=== PATIENT | male | born 1970 | race Caucasian/White ===

== ENCOUNTER 2017-01-01 11:01 | Emergency (ER) | payer BC, OTHER ==
[2017-01-01 11:26] VITALS: BP 156/96; PULSE 78; RESP 18; TEMP 98.8
--- NOTE | 2017-01-01 11:51 | ED ---
General Adult HPI - General Chief complaint: Recheck/Abnormal Lab/Rx Stated complaint: Hyperglycemia Time Seen by Provider: 01/01/17 11:35 Source: patient, family, RN notes reviewed Mode of arrival: ambulatory Limitations: no limitations - History of Present Illness Initial comments: Chief complaint history of present illness this is a 46-year-old male here with his significant other. The patient has a history of diabetes. He's been out of his Glucophage for 3 weeks he does use Lantus. He also needs a refill of his Lipitor and his glucose test strips. Patient has no other complaints - Related Data Home Medications Medication Instructions Recorded Confirmed Atorvastatin [Lipitor] 40 mg PO DAILY 12/01/15 12/01/15 metFORMIN HCL 1,000 mg PO BID-W/MEALS 12/01/15 12/01/15 Previous Rx's Medication Instructions Recorded Cephalexin [Keflex] 500 mg PO Q6HR #28 cap 12/01/15 Atorvastatin [Lipitor] 40 mg PO DAILY #90 tablet 01/01/17 metFORMIN HCL [Glucophage] 1,000 mg PO BID #120 tab 01/01/17 Allergies Allergy/AdvReac Type Severity Reaction Status Date / Time No Known Allergies Allergy Verified 01/01/17 11:26 Review of Systems ROS Statement: Those systems with pertinent positive or pertinent negative responses have been documented in the HPI. Review of systems no complaint of headache chest pain shortness breath GI/ problems no complaint of any infections or rashes. All systems are reviewed. Past medical problems significant for insulin diabetes mellitus, hyperlipidemia and hypertension. Surgeries include appendectomy and left wrist surgery. Family history noncontributory no known ALLERGIES. Patient does smoke strongly encouraged to stop. ROS Other: All systems not noted in ROS Statement are negative. Past Medical History Past Medical History: Diabetes Mellitus, Hyperlipidemia, Hypertension History of Any Multi-Drug Resistant Organisms: None Reported Past Surgical History: Appendectomy Additional Past Surgical History / Comment(s): LEFT WRIST, LEFT KNEE Past Psychological History: No Psychological Hx Reported Smoking Status: Current every day smoker Past Alcohol Use History: Occasional Past Drug Use History: None Reported General Exam - General Exam Comments Initial Comments: Physical exam Temperature 98.8 pulse 78 respiratory rate 18 pulse ox 94% in room air blood pressure 156/96. The patient's eyes PERRLA. No complaint of headache no stiff neck. Lungs clear to auscultation heart no murmur abdomen benign to palpation. No complaint of any rashes or infections. Alert and oriented no complaint of any neuro deficits. Patient is requesting referral to family physician and referral of several medications because he does not have a doctor to do it at this time. Limitations: no limitations Course Vital Signs 01/01/17 11:23 Temperature 98.8 F Pulse Rate 78 Respiratory 18 Rate Blood Pressure 156/96 O2 Sat by Pulse 94 L Oximetry Medical Decision Making - Medical Decision Making Patient's given a referral name for a more local physician, Dr. Cervantes. Disposition Clinical Impression: Encounter for medication refill Disposition: HOME SELF-CARE Condition: Stable Instructions: Diabetes in the Older Adult (ED) Additional Instructions: Eat proper diabetic diet. Continue the medications as directed. Follow-up with Dr. Cervantes Prescriptions: Atorvastatin [Lipitor] 40 mg PO DAILY #90 tablet metFORMIN HCL [Glucophage] 1,000 mg PO BID #120 tab Referrals: None,Stated [Primary Care Provider] - 1-2 days Angely Cervantes MD [STAFF PHYSICIAN] - 1-2 days Time of Disposition: 11:51
== END 2017-01-01 12:03 | disposition home or self-care (01) ==
LOC: EC 11:01
DX: Z76.0 Encounter for issue of repeat prescription (principal); E11.65 Type 2 diabetes mellitus with hyperglycemia; E78.5 Hyperlipidemia, unspecified; F17.200 Nicotine dependence, unspecified, uncomplicated; Z79.84 Long term (current) use of oral hypoglycemic drugs; Z79.899 Other long term (current) drug therapy
CPT/HCPCS: 99282